=== PATIENT | male | born 1965 | race Caucasian/White ===

== ENCOUNTER 2023-02-16 01:53 | Day surgery (SDC) | payer BC, SELFPAY ==
[2023-02-02 10:36] VITALS: BMI 38.5
--- NOTE | 2023-02-14 13:40 | SUR.PREOP ---
Patient called regarding upcoming procedure. Reviewed preop instructions, appointment times, and procedure prep.
--- NOTE | 2023-02-15 17:20 | P.HP_ITS ---
History of Present Illness History of Present Illness Consent: Risks, benefits, and alternatives have been discussed and questions answered. Patient agrees to proceed with procedure. Chief complaint: Diverticulitis Narrative: Subhash Horton is a 58 year old male Referred for colonoscopy due to recent episode of apparent diverticulitis. He had a CT scan the results of which are not available to us at this time. Review of Systems Review of Systems: All systems reviewed & are unremarkable except as noted in HPI and below PMFSH Past Medical History Medical History Diabetes High cholesterol Hypertension Surgical History Surgical History History of cholecystectomy 07/2014 History of hernia repair 08/2010 History of total right hip replacement 06/01/2004- Dr. 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 Gender identity (if verbalized by the patient): Male Meds Home Medications and Allergies Home Medications Medication Instructions Recorded Confirmed Type atorvastatin 10 mg tablet 10 mg PO DAILY 07/14/20 02/16/23 History hydrochlorothiazide 25 mg tablet 25 mg PO DAILY 07/14/20 02/16/23 History lisinopril 40 mg tablet 40 mg PO DAILY 07/14/20 02/16/23 History metformin 500 mg tablet 500 mg PO DAILY 09/14/21 02/16/23 History Allergies Allergy/AdvReac Type Severity Reaction Status Date / Time No Known Allergies Allergy Verified 02/16/23 11:10 Exam Resp: Auscultation: clear to auscultation bilaterally Cardio: Rate: regular rate Rhythm: regular rhythm GI: GI Palp: Yes Soft to palpation and No Tenderness to palpation present (GI) Assessment and Plan Assessment and plan (1) Diverticulitis: Code(s): K57.92 - Diverticulitis of intestine, part unspecified, without perforation or abscess without bleeding Status: Acute Assessment and Plan: Colonoscopy with possible biopsy or polypectomy or cautery or injection of substances.
[2023-02-16 11:02] VITALS: BP 141/98; PULSE 97; RESP 18; TEMP 35.9; O2SAT 98; BMI 37.9
[2023-02-16] MEDS: LACTATED RINGERS 1,000 ML 150 ML IV CONT (11:27)
--- NOTE | 2023-02-16 11:28 | WPDANESEPPF ---
Anes - Initial Pre Proc Eval Procedure: Operation Date: 02/16/23 12:30 Proposed Procedures p Colonoscopy - Mikael Monge MD Date/Time: 02/16/23 11:28 Surgeon: Mikael Monge MD Pre Op Diagnosis: Diverticulitis Patient Data Age: 58 Gender: M Height: 1.96 m Weight: 145 kg Last Vital Signs Temp 96.7 F L 02/16/23 11:02 Pulse 97 02/16/23 11:02 Resp 18 02/16/23 11:02 BP 141/98 H 02/16/23 11:02 Pulse Ox 98 02/16/23 11:02 O2 Del Method Room Air 02/16/23 11:02 Allergies Allergy/AdvReac Type Severity Reaction Status Date / Time No Known Allergies Allergy Verified 02/16/23 11:10 Home Medications Medication Instructions Recorded Confirmed Type atorvastatin 10 mg tablet 10 mg PO DAILY 07/14/20 02/16/23 History hydrochlorothiazide 25 mg tablet 25 mg PO DAILY 07/14/20 02/16/23 History lisinopril 40 mg tablet 40 mg PO DAILY 07/14/20 02/16/23 History metformin 500 mg tablet 500 mg PO DAILY 09/14/21 02/16/23 History Laboratory Tests 02/16/23 11:16 POC Capillary Glucose Pending Patient hx anesthesia problems: none Family hx anesthesia problems: none Results Review: All pre-operative results and documents have been reviewed as part of the pre-operative evaluation. [facility], [facility] Past Medical History Medical History Diabetes High cholesterol Hypertension Surgical History Surgical History History of cholecystectomy 07/2014 History of hernia repair 08/2010 History of total right hip replacement 06/01/2004- Dr. 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 Informed Consent: The patient's anesthetic plan and its attendant risks and benefits were discussed with the patient/family/POA. Questions were solicited and answers provided to the satisfaction of the patient/family/POA.
[2023-02-16 11:29] LABS: Glucose Point of Care 139 mg/dl (65-105)
[2023-02-16 12:18] VITALS: BP 108/74; PULSE 95; RESP 16; O2SAT 96
[2023-02-16 12:28] VITALS: BP 121/86; PULSE 88; RESP 16; O2SAT 97
[2023-02-16 12:38] VITALS: BP 130/92; PULSE 75; RESP 16; O2SAT 96
== END 2023-02-16 12:55 | disposition home or self-care (01) ==
PROVIDERS: PCP Internal Medicine; Visit Provider Internal Medicine Gastroenterology
PROC: 0DJD8ZZ Inspection of Lower Intestinal Tract, Via Natural or Artificial Opening Endoscopic (ICD-10-PCS; CPT 45378; principal; 2023-02-16 12:30)
DX: Z09 Encounter for follow-up examination after completed treatment for conditions other than malignant neoplasm (principal); K57.30 Diverticulosis of large intestine without perforation or abscess without bleeding; Z87.19 Personal history of other diseases of the digestive system; I10 Essential (primary) hypertension; E11.9 Type 2 diabetes mellitus without complications; E78.00 Pure hypercholesterolemia, unspecified; Z79.84 Long term (current) use of oral hypoglycemic drugs; E66.9 Obesity, unspecified; Z68.37 Body mass index [BMI] 37.0-37.9, adult
CPT/HCPCS: 45378; 82948; J2704; J7120